=== PATIENT | female | born 1955 | race Caucasian/White ===

== ENCOUNTER 2016-06-28 07:52 | Day surgery (SDC) | payer MEDICARE ==
[~2016-06-28] VITALS: Ht 167.6 cm; Wt 121.0 kg
[~2016-06-28 07:52] MED LIST: ACID1TAB7 PO; ACYC-57 PO; AMLO1CAP6 PO; AMOX1TAB12 PO; ASPI325T4 PO; CHOL100015 PO; HYDR-3144 PO; LEVO175T2 PO; OMEP-110 PO; ONDA8TAB16 SL
[2016-06-28 08:49] VITALS: BP 138/92
[2016-06-28] MEDS ORDERED: SODIUM CHLORIDE 0.9% 1,000 ML IV SCH (08:49)
[2016-06-28] MEDS ORDERED: PSEU120T44 PO (08:52)
[2016-06-28] MEDS ORDERED: LORA10CA PO (08:52)
[2016-06-28] MEDS ORDERED: CEFAZOLIN PMX 1GM/50ML 50 ML IVPB ONE (09:00)
[2016-06-28] MEDS ORDERED: LIDOCAINE 1%, 20ML ONE (09:30)
[2016-06-28] MEDS ORDERED: FENTANYL PF 100 MCG/2ML ONE ×2 (09:43→10:28)
[2016-06-28] MEDS ORDERED: MIDAZOLAM 1 MG/ML, 5ML ONE ×2 (09:44→10:28)
== END 2016-06-28 13:20 | disposition home or self-care (01) ==
LOC: OUT 07:52
PROVIDERS: ATTEND Internal Medicine Hematology & Oncology
DX: Z45.2 Encounter for adjustment and management of vascular access device (principal); C81.93 Hodgkin lymphoma, unspecified, intra-abdominal lymph nodes; I10 Essential (primary) hypertension
CPT/HCPCS: 36590; 77001; J0690; J2250; J3010; J3490; J7030; 99156; 99157

== ENCOUNTER → 2016-11-01 | Outpatient (CLI) | payer MEDICARE ==
[~2016-11-01] MED LIST changes: +LORA10CA PO; +PSEU120T44 PO
== END | disposition home or self-care (01) ==
LOC: CFH 09:07
PROVIDERS: ATTEND Internal Medicine Critical Care Medicine
DX: Z12.31 Encounter for screening mammogram for malignant neoplasm of breast (principal); Z13.820 Encounter for screening for osteoporosis; N95.8 Other specified menopausal and perimenopausal disorders; I08.3 Combined rheumatic disorders of mitral, aortic and tricuspid valves; E78.5 Hyperlipidemia, unspecified; Z85.72 Personal history of non-Hodgkin lymphomas
CPT/HCPCS: 36415; 77063; 77080; 80061; 84443; 93306; G0202

== ENCOUNTER → 2016-12-21 | Outpatient (CLI) | payer MEDICARE ==
[~2016-12-21] MED LIST changes: +ASPI325T17 PO; -ASPI325T4 PO; -HYDR-3144 PO; +HYDR-3245 PO
== END | disposition home or self-care (01) ==
LOC: RAD 09:31
PROVIDERS: ATTEND Internal Medicine Critical Care Medicine
DX: M47.894 Other spondylosis, thoracic region (principal); Z85.72 Personal history of non-Hodgkin lymphomas
CPT/HCPCS: 71010; 78582; 94060; 94620; 94726; 94729; A9540; A9558

== ENCOUNTER → 2017-08-28 | Outpatient (CLI) | payer MEDICARE ==
[~2017-08-28] MED LIST changes: +OMNIPAQUE 350 MG/ML, 150 ML BOTTLE ONE; +PSEU120T10 PO; -PSEU120T44 PO
== END | disposition home or self-care (01) ==
LOC: CFH 08:41
PROVIDERS: ATTEND Internal Medicine Hematology & Oncology
DX: R59.9 Enlarged lymph nodes, unspecified (principal)
CPT/HCPCS: 71260; 74177; 82565; Q9967

== ENCOUNTER → 2017-10-02 | Outpatient (CLI) | payer MEDICARE ==
[~2017-10-02] MED LIST changes: -OMNIPAQUE 350 MG/ML, 150 ML BOTTLE ONE
== END | disposition home or self-care (01) ==
LOC: CFH 12:29
PROVIDERS: ATTEND Internal Medicine Hematology & Oncology
DX: N85.8 Other specified noninflammatory disorders of uterus (principal); D72.829 Elevated white blood cell count, unspecified; R59.9 Enlarged lymph nodes, unspecified
CPT/HCPCS: 76830

== ENCOUNTER 2017-10-30 06:56 | Day surgery (SDC) | payer MEDICARE ==
[~2017-10-30] VITALS: Ht 170.2 cm; Wt 137.5 kg
[~2017-10-30 06:56] MED LIST changes: +ALBU8.5H8 INH; +FLUT1AER INH; +FLUT1BLS INH; +FLUT9.9S NAS
[2017-10-30] MEDS ORDERED: LACTATED RINGERS 1,000 ML IV SCH (07:29)
[2017-10-30] MEDS ORDERED: SCOPOLAMINE PATCH, 1.5MG PATCH.TD72 TD ONE (07:30)
[2017-10-30] MEDS ORDERED: GABAPENTIN 300 MG CAPSULE PO ONE (07:30)
[2017-10-30] MEDS ORDERED: ACETAMINOPHEN 500 MG TABLET PO ONE (07:30)
[2017-10-30 07:45] VITALS: BP 136/84
[2017-10-30] MEDS ORDERED: MIDAZOLAM 1 MG/ML, 2ML ONE (09:29)
[2017-10-30] MEDS ORDERED: FENTANYL PF 250 MCG/5ML ONE (09:29)
[2017-10-30] MEDS ORDERED: BUPIVACAINE/PF-EPI 0.25% 1:200K ONE (10:13)
[2017-10-30] MEDS ORDERED: CEFAZOLIN 1,000 MG ONE (11:20)
[2017-10-30] MEDS ORDERED: ONDANSETRON 2MG/ML, 2ML ONE ×2 (11:20→12:57)
[2017-10-30] MEDS ORDERED: PROPOFOL 10 MG/ML, 20ML ONE (11:20)
[2017-10-30] MEDS ORDERED: SUCCINYLCHOLINE 20 MG/ML, 10ML ONE (11:20)
[2017-10-30] MEDS ORDERED: ROCURONIUM 10MG/ML,5ML ONE (11:20)
[2017-10-30] MEDS ORDERED: GLYCOPYRROLATE 0.2MG/1ML, 5ML ONE (11:20)
[2017-10-30] MEDS ORDERED: DEXAMETHASONE 4 MG/ML, 1ML ONE (11:20)
[2017-10-30] MEDS ORDERED: NEOSTIGMINE 1 MG/ML, 10ML ONE (11:20)
[2017-10-30] MEDS ORDERED: HYDROmorphone 1 MG/ML, 1ML IV PRN (11:30)
[2017-10-30] MEDS ORDERED: PROMETHAZINE 25 MG/ML, 1ML IV PRN (11:30)
[2017-10-30] MEDS ORDERED: DIPHENHYDRAMINE 50 MG/ML, 1ML IVPush PRN (11:30)
[2017-10-30] MEDS ORDERED: hydrALAzine 20 MG/ML, 1ML IV PRN (11:30)
[2017-10-30] MEDS ORDERED: LABETALOL 5MG/ML, 20ML IV PRN (11:30)
[2017-10-30] MEDS ORDERED: ALBUTEROL SULFATE 2.5 MG/3 ML NPPB PRN (11:30)
[2017-10-30] MEDS ORDERED: ONDANSETRON 2MG/ML, 2ML IV PRN (11:30)
[2017-10-30] MEDS ORDERED: OXYcodone 5 MG/5 ML ORAL.SOL UDC PO PRN (11:30)
[2017-10-30] MEDS ORDERED: SUGAMMADEX 200 MG/2 ML IVPush ONE ×2 (11:54)
[2017-10-30] MEDS ORDERED: OXYcodone 5 MG/5 ML ORAL.SOL UDC ONE (12:15)
[2017-10-30] MEDS ORDERED: FENTANYL PF 100 MCG/2ML ONE (12:15)
[2017-10-30] MEDS: FENTANYL PF 100 MCG/2ML IV PRN ×2 (12:18→12:52)
[2017-10-30] MEDS ORDERED: KETOROLAC 30 MG/1 ML ONE (12:23)
[2017-10-30] MEDS ORDERED: PROMETHAZINE 25 MG/ML, 1ML ONE (12:57)
[2017-10-30] MEDS ORDERED: KETOROLAC 30 MG/1 ML IVPush ONE (13:00)
[2017-10-30] MEDS ORDERED: EPHEDRINE 50 MG/ML, 1ML ONE (15:24)
[2017-10-30] MEDS ORDERED: OXYcodone/APAP 7.5/325MG TABLET PO ONE (17:00)
== END 2017-10-30 17:20 | disposition home or self-care (01) ==
LOC: OUT 06:56
PROVIDERS: ATTEND Specialist
DX: N73.6 Female pelvic peritoneal adhesions (postinfective) (principal); N83.292 Other ovarian cyst, left side; N83.291 Other ovarian cyst, right side; I10 Essential (primary) hypertension; E66.9 Obesity, unspecified; J45.909 Unspecified asthma, uncomplicated; N83.8 Other noninflammatory disorders of ovary, fallopian tube and broad ligament; G47.33 Obstructive sleep apnea (adult) (pediatric); Z79.82 Long term (current) use of aspirin; Z90.710 Acquired absence of both cervix and uterus; Z87.39 Personal history of other diseases of the musculoskeletal system and connective tissue; Z98.890 Other specified postprocedural states; Z85.41 Personal history of malignant neoplasm of cervix uteri; Z86.711 Personal history of pulmonary embolism; Z86.718 Personal history of other venous thrombosis and embolism; Z79.899 Other long term (current) drug therapy
CPT/HCPCS: 58661; 88305; J0330; J0690; J1100; J1885; J2250; J2405; J2550; J2704; J2710; J3010; J3490; J7120